=== PATIENT | female | born 1945 ===

== ENCOUNTER 2018-03-02 07:02 | Emergency (ER) | payer OTHER ==
[~2018-03-02] VITALS: Ht 165.1 cm; Wt 65.8 kg
[~2018-03-02 07:02] MED LIST: CONEX TABLET1 EACH PO; LIPITOR40 MG; PROTONIX; PROTONIX40 MG PO
[2018-03-02] MEDS ORDERED: ZANTAC150 M3 PO (07:40)
[2018-03-02] MEDS ORDERED: BACTRIM DS TAB1 EACH PO (10:29)
== END 2018-03-02 11:06 | disposition home or self-care (01) ==
LOC: ER 07:02
DX: N39.0 Urinary tract infection, site not specified (principal)

== ENCOUNTER → 2018-06-21 | Emergency (ER) | payer OTHER ==
[~2018-06-21] VITALS: Ht 167.6 cm; Wt 65.8 kg
[~2018-06-21] MED LIST changes: +BACTRIM DS TAB1 EACH PO; +ZANTAC150 M3 PO
== END | disposition home or self-care (01) ==
LOC: ER 18:41
DX: R51 Headache (principal); R10.13 Epigastric pain; E86.0 Dehydration

== ENCOUNTER 2018-10-25 07:59 | Outpatient (CLI) | payer OTHER | END 2018-10-25 08:01 | disposition home or self-care (01) | LOC: SONOGRAMA 07:59 | DX: K76.0 Fatty (change of) liver, not elsewhere classified (principal) ==

== ENCOUNTER 2018-12-20 07:27 | Outpatient (CLI) | payer OTHER | END 2018-12-20 07:29 | disposition home or self-care (01) | LOC: NUCLEAR 07:27 | DX: K82.8 Other specified diseases of gallbladder (principal) | CPT/HCPCS: 78227; A9537 ==

== ENCOUNTER 2022-08-15 10:29 | Emergency (ER) | payer OTHER ==
[~2022-08-15] VITALS: Ht 165.1 cm; Wt 68.0 kg
[~2022-08-15 10:29] MED LIST changes: +PEPCID AC10 MG
[2022-08-15] MEDS ORDERED: CIPRO500 MG/5 M PO (12:02)
== END 2022-08-15 12:17 | disposition home or self-care (01) ==
LOC: ER 10:29
DX: N39.0 Urinary tract infection, site not specified (principal); Z91.041 Radiographic dye allergy status

== ENCOUNTER 2024-05-08 08:41 | Outpatient (CLI) | payer OTHER ==
[~2024-05-08 08:41] MED LIST changes: +CIPRO500 MG/5 M PO
== END 2024-05-08 08:42 | disposition home or self-care (01) ==
LOC: NUCLEAR 08:41
PROVIDERS: ATTEND Internal Medicine Cardiovascular Disease
DX: I10 Essential (primary) hypertension (principal)